=== PATIENT | male | born 1950 | race Caucasian/White ===

== ENCOUNTER 2021-10-04 14:44 | Emergency (ER) | payer MEDICARE ==
[~2021-10-04] VITALS: Ht 188 cm; Wt 85.7 kg
[~2021-10-04 14:44] MED LIST: ASPIRIN EC81 MG PO; AUGMENTIN 875-1 EACH PO; DOCUSATE SODIU100 M1 PO; FERROUS SULFAT325 M2 PO; FISH OIL 1,2001 EACH PO; LIPITOR10 MG PO; LISINOPRIL10 MG PO; MULTIVITAMINS1 EAC1 PO; PERCOCET 10-321 EACH PO; TYLENOL325 MG PO; VITAMIN C500 M4 PO; XARELTO10 MG PO
[2021-10-04 15:37] LABS: HEMOGLOBIN 14.8 gm/dl (14.0-17.5); RED BLOOD COUNT 4.8 M/UL (4.20-5.50); WHITE BLOOD COUNT 11.9 K/UL (4.5-11.0)
[2021-10-04 16:07] LABS: BUN/CREATININE RATIO 17 (0-10)
== END 2021-10-04 18:50 | disposition home or self-care (01) ==
LOC: ER1 14:44
PROVIDERS: Nurse Practitioner
DX: U07.1 COVID-19 (principal); J12.82 Pneumonia due to coronavirus disease 2019; E78.5 Hyperlipidemia, unspecified; I10 Essential (primary) hypertension; Z96.641 Presence of right artificial hip joint; Z23 Encounter for immunization
CPT/HCPCS: 0240U; 71045; 80053; 85025; 94760; 99283; M0243

== ENCOUNTER 2021-10-07 19:03 | Inpatient (IN) | payer OTHER ==
[~2021-10-07] VITALS: Ht 188 cm; Wt 85.7 kg
[2021-10-07 19:33] LABS: HEMOGLOBIN 14.1 gm/dl (14.0-17.5); RED BLOOD COUNT 4.33 M/UL (4.20-5.50); WHITE BLOOD COUNT 10.4 K/UL (4.5-11.0)
[2021-10-07 19:52] LABS: BUN/CREATININE RATIO 15 (0-10)
[2021-10-08 00:06] LABS: BUN/CREATININE RATIO 19 (0-10)
[2021-10-08 05:13] LABS: RED BLOOD COUNT 4.09 M/UL (4.20-5.50)
[2021-10-08 05:15] LABS: WHITE BLOOD COUNT 6.4 K/UL (4.5-11.0)
[2021-10-08 05:35] LABS: BUN/CREATININE RATIO 21 (0-10)
[2021-10-08] MEDS ORDERED: VITAMIN D3250 MCG PO (09:44)
[2021-10-08] MEDS ORDERED: ZINC50 M2 PO (09:44)
[2021-10-08] MEDS ORDERED: TYLENOL 8 HOUR650 MG PO (09:45)
[2021-10-09 08:15] LABS: HEMOGLOBIN 14.3 gm/dl (14.0-17.5)
[2021-10-09 08:20] LABS: RED BLOOD COUNT 4.84 M/UL (4.20-5.50); WHITE BLOOD COUNT 13.2 K/UL (4.5-11.0)
[2021-10-09 08:37] LABS: BUN/CREATININE RATIO 34 (0-10)
[2021-10-10 05:37] LABS: HEMOGLOBIN 14.2 gm/dl (14.0-17.5); RED BLOOD COUNT 4.53 M/UL (4.20-5.50); WHITE BLOOD COUNT 14.7 K/UL (4.5-11.0)
[2021-10-10 05:45] LABS: BUN/CREATININE RATIO 50 (0-10)
--- NOTE | 2021-10-10 13:15 | NUR ---
PATIENT ON AIRVO EATING LUNCH. O2 SAT STABLE AT 93%. RESPIRATIONS STABLE AT 26 BREATHS PER MINUTE.
--- NOTE | 2021-10-10 19:41 | NUR ---
SPOKE WITH BIRD IN BLOOD BANK . PLATELETS NO AVAILABLE HERE. ATTEMPTING TO GET THEM . STATES MAY BE IN THE A.M. NEXT DATE.
--- NOTE | 2021-10-10 23:05 | NUR ---
ANXIOUS , RESPIRATIONS 32 , HR SINUS TACH @ 100'S -110. BP 130/91 . HE IS CONTINUALLY PUULING AT BIPAP MASK DESPITE SEVERAL ATTEMPTS BY MYSELF AND RT TO ADJUST IT FOR HIS COMFORT. STATES HE IS INCREASINGLY GETTING ANXIOUS. PREVIOUSLY ADMINISTERED XANAX WASNT EFFECTIVE TO CALM HIM. PRECEDEX DRIP STARTED AT THIS TIME. WILL CONTINUE TO MONITOR AND ADJUST FOR COMFORT.
[2021-10-11 04:31] LABS: HEMOGLOBIN 13.3 gm/dl (14.0-17.5); RED BLOOD COUNT 4.37 M/UL (4.20-5.50)
[2021-10-11 04:43] LABS: WHITE BLOOD COUNT 10.3 K/UL (4.5-11.0)
[2021-10-11 04:52] LABS: BUN/CREATININE RATIO 41 (0-10)
[2021-10-12 09:31] LABS: HEMOGLOBIN 14.9 gm/dl (14.0-17.5); RED BLOOD COUNT 4.95 M/UL (4.20-5.50); WHITE BLOOD COUNT 16.5 K/UL (4.5-11.0)
[2021-10-12 10:02] LABS: BUN/CREATININE RATIO 42 (0-10)
--- NOTE | 2021-10-12 10:11 | NUR ---
spoke with patients about the patient not liking the hopsital food. stated she would try and get to the store to get him food he would like and bring it up. patient refused to eat the hospital food
[2021-10-13 05:53] LABS: HEMOGLOBIN 13.2 gm/dl (14.0-17.5); WHITE BLOOD COUNT 13.1 K/UL (4.5-11.0)
[2021-10-13 06:04] LABS: RED BLOOD COUNT 4.4 M/UL (4.20-5.50)
[2021-10-13 07:00] LABS: BUN/CREATININE RATIO 32 (0-10)
[2021-10-14 11:08] LABS: BUN/CREATININE RATIO 22 (0-10)
[2021-10-15 05:23] LABS: HEMOGLOBIN 14.8 gm/dl (14.0-17.5); WHITE BLOOD COUNT 15.5 K/UL (4.5-11.0)
[2021-10-15 05:42] LABS: BUN/CREATININE RATIO 26 (0-10)
[2021-10-15 05:47] LABS: RED BLOOD COUNT 4.88 M/UL (4.20-5.50)
[2021-10-16 06:06] LABS: BUN/CREATININE RATIO 47 (0-10)
--- NOTE | 2021-10-18 17:44 | NUR ---
OBTAINED TELEPHONE CONSENT FROM PT AND SON WITH DR SHAH. PT ALSO AGREED TO HAVE RIGHT CHEST TUBE PLACEMENT IN ATTEMPT TO RESOLVE RIGHT PNEUMO. I ASSISTED MD WITH BEDSIDE PROCEDURE ALONG WITH AXEL GARCIA. PT PREPPED, NUMBED AND TUBE IN PLACE AND HOOKED UP TO CHAMBER WITH NO ISSUES. SITE WAS SUTURED AND COVERED WITH ABD AND TAPE. CHEST XRAY TO CONFIRM PLACEMENT WAS OBTAINED.
[2021-10-19 04:55] LABS: HEMOGLOBIN 15.9 gm/dl (14.0-17.5); RED BLOOD COUNT 5.45 M/UL (4.20-5.50); WHITE BLOOD COUNT 19.7 K/UL (4.5-11.0)
[2021-10-19 05:15] LABS: BUN/CREATININE RATIO 66 (0-10)
[2021-10-20 05:38] LABS: HEMOGLOBIN 15.2 gm/dl (14.0-17.5); RED BLOOD COUNT 5.02 M/UL (4.20-5.50); WHITE BLOOD COUNT 20.2 K/UL (4.5-11.0)
[2021-10-20 06:06] LABS: BUN/CREATININE RATIO 52 (0-10)
[2021-10-21 05:25] LABS: HEMOGLOBIN 16.4 gm/dl (14.0-17.5); RED BLOOD COUNT 5.4 M/UL (4.20-5.50); WHITE BLOOD COUNT 23.1 K/UL (4.5-11.0)
[2021-10-21 05:57] LABS: BUN/CREATININE RATIO 44 (0-10)
[2021-10-22 09:55] LABS: HEMOGLOBIN 15.3 gm/dl (14.0-17.5); RED BLOOD COUNT 5.07 M/UL (4.20-5.50); WHITE BLOOD COUNT 21.2 K/UL (4.5-11.0)
[2021-10-22 10:20] LABS: BUN/CREATININE RATIO 43 (0-10)
[2021-10-23 05:07] LABS: HEMOGLOBIN 14.7 gm/dl (14.0-17.5); RED BLOOD COUNT 5.02 M/UL (4.20-5.50); WHITE BLOOD COUNT 17.7 K/UL (4.5-11.0)
[2021-10-23 05:28] LABS: BUN/CREATININE RATIO 45 (0-10)
[2021-10-23 23:49] LABS: RED BLOOD COUNT 4.07 M/UL (4.20-5.50); WHITE BLOOD COUNT 24.2 K/UL (4.5-11.0)
[2021-10-23 23:50] LABS: HEMOGLOBIN 12.3 gm/dl (14.0-17.5)
[2021-10-24 02:52] LABS: HEMOGLOBIN 9.7 gm/dl (14.0-17.5); RED BLOOD COUNT 3.27 M/UL (4.20-5.50); WHITE BLOOD COUNT 14.9 K/UL (4.5-11.0)
[2021-10-24 03:03] LABS: BUN/CREATININE RATIO 44 (0-10)
--- NOTE | 2021-10-24 04:48 | NUR ---
AT 0144 ON WEDNESDAY, OCTOBER 24 MR. SHOBHA REYNA WAS DICOVERED TO BE UNRESPONSIVE WITH A HEART RHYTHM DETERMINED TO BE PEA BY [facility] OSWALD RN. CHEST COMPRESSIONS WERE INITIATED BY BRY WAY RN AT THIS TIME. THE CODE BUTTON WAS PRESSED AND DR. GONZALES WAS CONTACTED BY TELEPHONE BY NEWTON LUCAS RN AT 0148. ROSC WAS ACHIEVED AT 0203 AFTER ADMINISTRATION OF 5MG OF EPINEPHRINE OVER THE COURSE OF 15 MINUTES. DURING THIS PERIOD 2 AMPS OF SODIUM BICARB, 1 GRAM OF CALCIUM CHLORIDE, AND 300MG OF AMIODORONE WERE ALSO GIVEN. DURING THE FIRST AND THIRD RHYTHM CHECKS THE PATIENT WAS DETERMINED TO BE IN V FIB AND 2 SHOCKS OF 200 JOULES WERE DELIVERED. THE PATIENT WAS BRADYCARDIC AND HYPOTENSIVE AND AT 0228 THE PATIENT WENT ASYSTOLE AGAIN AND ACLS WAS INITIATED AGAIN. ROSC WAS ACHIEVED AT [address] GONZALES PLACED A CETRAL LINE AT THIS TIME. AT 300 THE PATIENT WENT ASYSTOLE AGAIN AND ACLS WAS PERFORMED UNTIL ROSC WAS ACHIEVED AT 030. AT 031 THE PATIENT WAS BRADYCARDIC AND DR GONZALES WAS CALLED AGAIN. HE SPOKE WITH THE FAMILY AND AT 033 THE DECISION WAS MADE TO MAKE THE PATIENT A DNR. TIME OF WAS CALLED AT 035.
== END 2021-10-24 03:50 | disposition expired | DRG 208 ==
LOC: ER1 19:03 → CCU 20:41 → CDU 20:41 → CCU 22:47
PROVIDERS: Family Medicine; Internal Medicine; Internal Medicine Critical Care Medicine; Internal Medicine Pulmonary Disease; ADMIT Internal Medicine
PROC: 8E0ZXY6 Isolation (ICD-10-PCS; 2021-10-07)
PROC: 3E0333Z Introduction of Anti-inflammatory into Peripheral Vein, Percutaneous Approach (ICD-10-PCS; 2021-10-07)
PROC: XW033E5 Introduction of Remdesivir Anti-infective into Peripheral Vein, Percutaneous Approach, New Technology Group 5 (ICD-10-PCS; 2021-10-07)
PROC: 3E043XZ Introduction of Vasopressor into Central Vein, Percutaneous Approach (ICD-10-PCS; 2021-10-07)
PROC: 5A09357 Assistance with Respiratory Ventilation, Less than 24 Consecutive Hours, Continuous Positive Airway Pressure (ICD-10-PCS; 2021-10-07)
PROC: 5A0935A Assistance with Respiratory Ventilation, Less than 24 Consecutive Hours, High Flow/Velocity Cannula (ICD-10-PCS; 2021-10-08)
PROC: 5A09557 Assistance with Respiratory Ventilation, Greater than 96 Consecutive Hours, Continuous Positive Airway Pressure (ICD-10-PCS; 2021-10-13)
PROC: B24BZZZ Ultrasonography of Heart with Aorta (ICD-10-PCS; 2021-10-17)
PROC: 0W9930Z Drainage of Right Pleural Cavity with Drainage Device, Percutaneous Approach (ICD-10-PCS; 2021-10-18)
PROC: 5A12012 Performance of Cardiac Output, Single, Manual (ICD-10-PCS; principal; 2021-10-24)
PROC: 02HV33Z Insertion of Infusion Device into Superior Vena Cava, Percutaneous Approach (ICD-10-PCS; 2021-10-24)
PROC: B548ZZA Ultrasonography of Superior Vena Cava, Guidance (ICD-10-PCS; 2021-10-24)
PROC: 5A2204Z Restoration of Cardiac Rhythm, Single (ICD-10-PCS; 2021-10-24)
PROC: 0BH17EZ Insertion of Endotracheal Airway into Trachea, Via Natural or Artificial Opening (ICD-10-PCS; 2021-10-24)
PROC: 5A1935Z Respiratory Ventilation, Less than 24 Consecutive Hours (ICD-10-PCS; 2021-10-24)
DX: U07.1 COVID-19 (principal); J95.811 Postprocedural pneumothorax; J80 Acute respiratory distress syndrome; Z66 Do not resuscitate; J12.82 Pneumonia due to coronavirus disease 2019; I26.99 Other pulmonary embolism without acute cor pulmonale; K72.00 Acute and subacute hepatic failure without coma; J15.9 Unspecified bacterial pneumonia; R57.8 Other shock; I49.01 Ventricular fibrillation; I46.8 Cardiac arrest due to other underlying condition; J95.859 Other complication of respirator [ventilator]; J94.8 Other specified pleural conditions; I82.409 Acute embolism and thrombosis of unspecified deep veins of unspecified lower extremity; E78.5 Hyperlipidemia, unspecified; I48.91 Unspecified atrial fibrillation; I45.10 Unspecified right bundle-branch block; R73.9 Hyperglycemia, unspecified; F17.210 Nicotine dependence, cigarettes, uncomplicated; I10 Essential (primary) hypertension; F41.9 Anxiety disorder, unspecified; E87.6 Hypokalemia; Z96.641 Presence of right artificial hip joint; E87.5 Hyperkalemia; J98.2 Interstitial emphysema; Z99.81 Dependence on supplemental oxygen; Z86.718 Personal history of other venous thrombosis and embolism; Z79.01 Long term (current) use of anticoagulants; Z86.711 Personal history of pulmonary embolism; Z98.890 Other specified postprocedural states; Z82.49 Family history of ischemic heart disease and other diseases of the circulatory system
CPT/HCPCS: ECHO; 36415; 36600; 71045; 71275; 80048; 80053; 80307; 82009; 82550; 82553; 82803; 82962; 83036; 83605; 83735; 83874; 83880; 84100; 84439; 84443; 84484; 85025; 85379; 85384; 85610; 85730; 86140; 87040; 87081; 93005; 93306; 93970; 94002; 94660; 94664; 94760; 96374; 96375; 99285; J0171; J0456; J0696; J1100; J1160; J1650; J2704; J7030; J7070; Q9967; U0002